=== PATIENT | male | born 1995 | race Caucasian/White ===

== ENCOUNTER 2017-04-07 21:57 | Emergency (ER) | payer SELFPAY ==
[~2017-04-07] VITALS: Ht 185.4 cm; Wt 96.9 kg
[~2017-04-07 21:57] MED LIST: Bactrim,Septra DS 80 PO; ERYTHROMYC1 APPLICAT LEFT EYE; Flagyl PO; HYDROCODON-ACE1 EAC7 PO; KEFLEX500 MG PO; NO HOME MEDS; NOHOMEMEDS; Senokot,Sennagen PO; Vicodin,Lortab 5/500 PO
[2017-04-07] MEDS ORDERED: PERCOCET 5/31 TABLET PO (22:57)
[2017-04-07] MEDS ORDERED: NAPROSYN500 MG PO (22:57)
[2017-04-07 23:11] VITALS: BP 139/85
== END 2017-04-07 23:13 | disposition home or self-care (01) ==
LOC: EME 21:57
DX: S70.01XA Contusion of right hip, initial encounter (principal); V80.010A Animal-rider injured by fall from or being thrown from horse in noncollision accident, initial encounter; Y93.52 Activity, horseback riding
CPT/HCPCS: 73502; 99281; 99283

== ENCOUNTER 2017-10-28 09:12 | Emergency (ER) | payer OTHER ==
[~2017-10-28] VITALS: Ht 185.4 cm; Wt 94.8 kg
[~2017-10-28 09:12] MED LIST changes: +NAPROSYN500 MG PO; +PERCOCET 5/31 TABLET PO
[2017-10-28 09:21] VITALS: BP 143/77
== END 2017-10-28 10:45 | disposition home or self-care (01) ==
LOC: EME 09:12
DX: J10.1 Influenza due to other identified influenza virus with other respiratory manifestations (principal); F17.200 Nicotine dependence, unspecified, uncomplicated
CPT/HCPCS: 87502; 87651 90; 99281; 99283